=== PATIENT | female | born 1960 | race Hispanic/Latino ===

== ENCOUNTER 2020-12-31 07:15 | Observation (INO) | payer SELFPAY ==
[2020-12-31] MEDS ORDERED: Ondansetron ODT 4 MG TAB PO PRN (07:35)
[2020-12-31] MEDS ORDERED: Ondansetron PF 4 MG/2 ML Vial IVP PRN (07:35)
[2020-12-31] MEDS ORDERED: Acetaminophen 325 MG TAB PO PRN (07:35)
[2020-12-31] MEDS ORDERED: Nitroglycerin 0.4 MG TAB (25 Tab Bottle) SL PRN (07:58)
[2020-12-31 08:11] VITALS: BMI 29.9
[2020-12-31] MEDS ORDERED: hydrALAZINE 20 MG/ML VIAL SLOW IVP PRN (08:26)
[2020-12-31 08:46] LABS: Troponin I 0.022 ng/mL (< 0.028)
[2020-12-31] MEDS ORDERED: Famotidine 20 MG TAB PO SCH (09:00)
[2020-12-31 11:40] LABS: Troponin I 0.041 ng/mL (< 0.028)
[2020-12-31] MEDS ORDERED: Nitroglycerin 2% Ointment 1 INCH/1 GM Packet TOP SCH ×2 (14:00)
[2020-12-31 14:25] LABS: Hemoglobin A1c 6.9 % (4.0-6.0)
[2020-12-31 16:11] VITALS: BP 111/64; TEMP 98.2
[2021-01-01] MEDS ORDERED: Clopidogrel Bisulfate 75 MG TAB PO SCH (09:00)
== END 2020-12-31 19:21 | disposition home or self-care (01) ==
LOC: CSHTELE 07:15
PROVIDERS: ADMIT Student in an Organized Health Care Education/Training Program; ATTEND Student in an Organized Health Care Education/Training Program
DX: R07.2 Precordial pain (principal); I16.0 Hypertensive urgency; E11.9 Type 2 diabetes mellitus without complications; Z79.899 Other long term (current) drug therapy; Z90.710 Acquired absence of both cervix and uterus
CPT/HCPCS: 36415; 76705; 83036; 83735; 84443; 93005; 93010; 93306; G0378